=== PATIENT | female | born 2005 | race Caucasian/White ===

== ENCOUNTER 2024-01-19 19:50 | Emergency (ER) | payer OTHER ==
[~2024-01-19] VITALS: Ht 157.5 cm; Wt 59.0 kg
[2024-01-19 23:17] VITALS: BP 121/80; TEMP 98.6; O2SAT 99
== END 2024-01-19 23:21 | disposition home or self-care (01) ==
LOC: ER 19:57
DX: F10.129 Alcohol abuse with intoxication, unspecified (principal); M79.671 Pain in right foot; F32.A Depression, unspecified; Z88.7 Allergy status to serum and vaccine
CPT/HCPCS: 73630-TC; 98960